=== PATIENT | female | born 1950 | race Two or more races ===

== ENCOUNTER 2017-12-06 06:15 | Day surgery (SDC) | payer OTHER ==
[~2017-12-06 06:15] MED LIST: EFFEXOR XR150 MG PO; GABAPENTIN800 MG PO; INDUR PO; LIPITOR40 MG PO; METOPROLOL SUCC50 MG PO; PREVACID30 MG PO; SINGULAIR10 MG PO; TRETAL PO
== END 2017-12-06 10:40 | disposition home or self-care (01) ==
LOC: CIR.AMB 06:15
DX: R15.9 Full incontinence of feces (principal)
CPT/HCPCS: 64590; C1767

== ENCOUNTER 2020-01-15 07:41 | Day surgery (SDC) | payer OTHER | END 2020-01-15 12:05 | disposition home or self-care (01) | LOC: AMB-ENDOS 07:41 | PROVIDERS: ATTEND Colon & Rectal Surgery | DX: K62.1 Rectal polyp (principal); K64.2 Third degree hemorrhoids; Z12.11 Encounter for screening for malignant neoplasm of colon; Z20.828 Contact with and (suspected) exposure to other viral communicable diseases ==

== ENCOUNTER 2020-11-02 04:52 | Inpatient (IN) | payer OTHER ==
[~2020-11-02] VITALS: Ht 152.4 cm; Wt 71.2 kg
--- NOTE | 2020-11-02 05:09 | NUR ---
PTE REFIERE DOLOR DE TRISTIN MARTINEZ . PTE TIENE REFERIDO DEL PARA LLEVARLA A CEE REGINALDO .
--- NOTE | 2020-11-02 05:25 | NUR ---
SE EDUCA A PTE SOBRE TX MEDICO ESTA REFIERE ENTENDER. SE JANAE MUESTRAS DE LAB UTILIZANDO MEDIDAS ASEPTICAS. SE COLOCA H/L EL CUAL SE ENCUENTRA PATENTE Y SANDY DE EDEMA. SE ADMINISTRAN MEDICAMENTOS A PTE LOS CUALES TOLERA. SE NOTIFCA ESTUDIO DE RX PENDIENTE A REALIZAR.
--- NOTE | 2020-11-02 05:58 | NUR ---
PACIENTE ALERTA Y ORIENTADA X3. SE REALIZA EKG Y SE PRESENTA A DR. FERNADNEZ.
--- NOTE | 2020-11-02 07:16 | NUR ---
PACIENTE ALERTA Y ORIENTADA EN JOELLE BREANNA ESFERAS CON BUEN PATRON RESPIRATORIO Y PIEL TIBIA AL TACTO. SE OBSERVA IVF'S PATENTE RECIBIENDO UN RL @ 60ML/HR. ORIENTADA SOBRE NO INGERIR ALIMENTOS. PENDIENTE CONSULTA CON DR. GUERRA. SE MANTIENE BAJO OBSERVACION POR CAMBIOS.
[2020-11-03] MEDS ORDERED: PERCOCET 5-3251 EACH PO (13:34)
== END 2020-11-03 19:35 | disposition home or self-care (01) | DRG 42 ==
LOC: ER 04:52 → SURH 15:44
PROVIDERS: ADMIT Colon & Rectal Surgery; ATTEND Colon & Rectal Surgery
PROC: 0JW Subcutaneous Tissue and Fascia, Revision (ICD-10-PCS; 2020-11-03)
PROC: [UNRECOGNIZED PROCEDURE] (principal; 2020-11-03 10:15)
DX: T85.123A Displacement of implanted electronic neurostimulator, generator, initial encounter (principal); T85.121A Displacement of implanted electronic neurostimulator of peripheral nerve electrode (lead), initial encounter; R15.9 Full incontinence of feces; Z20.822 Contact with and (suspected) exposure to COVID-19; Y83.8 Other surgical procedures as the cause of abnormal reaction of the patient, or of later complication, without mention of misadventure at the time of the procedure; Y73.3 Surgical instruments, materials and gastroenterology and urology devices (including sutures) associated with adverse incidents

== ENCOUNTER 2021-05-22 06:00 | Day surgery (SDC) | payer OTHER ==
[~2021-05-22] VITALS: Ht 152.4 cm; Wt 68.9 kg
[~2021-05-22 06:00] MED LIST changes: +ISOSORBIDE MONO60 M2 PO; +PERCOCET 5-3251 EACH PO; +VENLAFAXINE HC150 M1 PO
== END 2021-05-22 12:00 | disposition home or self-care (01) ==
LOC: CIR.AMB 06:00 → O/R 06:00 → SURH 06:00 → EDSTATUS 08:30 → SURH 08:30 → CIR.AMB 12:00 → O/R 12:00
PROVIDERS: ATTEND Orthopaedic Surgery Sports Medicine
DX: M17.12 Unilateral primary osteoarthritis, left knee (principal); Z53.09 Procedure and treatment not carried out because of other contraindication; T36.1X5A Adverse effect of cephalosporins and other beta-lactam antibiotics, initial encounter; Y92.234 Operating room of hospital as the place of occurrence of the external cause
CPT/HCPCS: 27447; C1776

== ENCOUNTER 2021-06-10 11:14 | Outpatient (CLI) | payer OTHER | END 2021-06-10 11:22 | disposition home or self-care (01) | LOC: LAB 11:14 | PROVIDERS: ATTEND Orthopaedic Surgery Sports Medicine | DX: Z20.828 Contact with and (suspected) exposure to other viral communicable diseases (principal) ==

== ENCOUNTER 2021-06-12 05:00 | Inpatient (IN) | payer OTHER ==
[~2021-06-12] VITALS: Ht 30.5 cm; Wt 5.0 kg
[2021-06-12] MEDS ORDERED: METOPROLOL TART50 MG (13:34)
[2021-06-12] MEDS ORDERED: ATORVASTATIN CA20 MG (13:34)
[2021-06-12] MEDS ORDERED: LATANOPROST2.5 ML (13:34)
[2021-06-12] MEDS ORDERED: NABUMETONE500 MG (13:34)
[2021-06-12] MEDS ORDERED: HYDROCHLOROTHIA25 MG (13:34)
[2021-06-14] MEDS ORDERED: XARELTO10 MG PO ×2 (06:26)
[2021-06-14] MEDS ORDERED: OXYC1TAB9 PO ×2 (06:26)
[2021-06-14] MEDS ORDERED: BACTRIM DS TAB1 EACH PO ×2 (06:26)
[2021-06-14] MEDS ORDERED: INTEGRA PLUS C1 EACH PO ×2 (06:26)
== END 2021-06-15 08:48 | DRG 470 ==
LOC: O/R 05:00 → SURH 11:27 → SURG 21:17
PROVIDERS: ADMIT Orthopaedic Surgery Sports Medicine; ATTEND Orthopaedic Surgery Sports Medicine
PROC: 0SRD0J9 Replacement of Left Knee Joint with Synthetic Substitute, Cemented, Open Approach (ICD-10-PCS; principal; 2021-06-12 14:00)
DX: M17.12 Unilateral primary osteoarthritis, left knee (principal); I10 Essential (primary) hypertension; Z20.822 Contact with and (suspected) exposure to COVID-19

== ENCOUNTER 2023-01-02 10:22 | Inpatient (IN) | payer OTHER ==
[~2023-01-02] VITALS: Ht 152.4 cm; Wt 71.7 kg
[~2023-01-02 10:22] MED LIST changes: +ATORVASTATIN CA20 MG; +BACTRIM DS TAB1 EACH PO; +HYDROCHLOROTHIA25 MG; +INTEGRA PLUS C1 EACH PO; +LATANOPROST2.5 ML; +METOPROLOL TART50 MG; +NABUMETONE500 MG; +OXYC1TAB9 PO; +XARELTO10 MG PO
[2023-01-03] MEDS ORDERED: ISORBIDE PO (09:21)
[2023-01-03] MEDS ORDERED: HORIZANT600 MG (09:24)
[2023-01-03] MEDS ORDERED: XALATAN (09:54)
[2023-01-07] MEDS ORDERED: LATANOPROST2.5 ML (16:33)
[2023-01-07] MEDS ORDERED: DESLORATADINE5 MG (16:33)
[2023-01-07] MEDS ORDERED: ZANAFLEX2 MG (16:34)
[2023-01-07] MEDS ORDERED: NABUMETONE500 MG (16:34)
[2023-01-07] MEDS ORDERED: OMEPRAZOLE40 MG (16:34)
[2023-01-07] MEDS ORDERED: FLONASE16 GM (16:34)
[2023-01-09] MEDS ORDERED: BACTRIM DS TAB1 EACH PO (06:39)
[2023-01-09] MEDS ORDERED: XARELTO10 MG PO (06:39)
[2023-01-09] MEDS ORDERED: OXYC1TAB9 PO (06:39)
[2023-01-09] MEDS ORDERED: INTEGRA PLUS C1 EACH PO (06:39)
== END 2023-01-09 15:50 | DRG 470 ==
LOC: SURH 01-07 08:00 → O/R 01-07 09:10 → SURH 01-07 15:33
PROVIDERS: ADMIT Orthopaedic Surgery Sports Medicine; ATTEND Orthopaedic Surgery Sports Medicine
PROC: 0SRC0J9 Replacement of Right Knee Joint with Synthetic Substitute, Cemented, Open Approach (ICD-10-PCS; principal; 2023-01-07 20:00)
DX: M17.11 Unilateral primary osteoarthritis, right knee (principal)